=== PATIENT | female | born 1960 | race Caucasian/White ===

== ENCOUNTER 2018-11-07 16:58 | Outpatient (REF) | payer OTHER, SELFPAY ==
[2018-11-07 22:19] LABS: ALT 25 U/L (12-78); AST 17 U/L (15-37); Albumin 4.1 g/dL (3.4-5.0); Alkaline Phosphatase 74 U/L (46-116); Anion Gap 14.2 mmol/L (3-11); BUN 20 mg/dL (7-18); Bilirubin, Total 0.5 mg/dL (0.2-1.0); CO2 22.8 mmol/L (21.0-32.0); CREATININE 0.83 mg/dL (0.55-1.02); Calcium 9.2 mg/dL (8.5-10.1); Calculated LDL 151 mg/dL; Chloride 107 mmol/L (98-107); Cholesterol 237 mg/dL (50-200); Glucose 96 mg/dL (70-100); HDL Cholesterol 52 mg/dL (40-60); Sodium 144 mmol/L (136-145); Total Protein 7.3 g/dL (6.4-8.2); Triglyceride 171 mg/dL (30-150)
[2018-11-07 23:58] LABS: TSH (W/Ref FT4) 1.71 uIU/mL (0.36-3.74)
[2018-11-08 06:16] LABS: Vitamin D 25 Total 44.4 ng/ml (30-100)
== END 2018-11-07 17:18 ==
LOC: NCHCN 16:58
PROVIDERS: PCP Family Medicine; Visit Provider Family Medicine
DX: Z00.00 Encounter for general adult medical examination without abnormal findings (principal); E78.00 Pure hypercholesterolemia, unspecified; E55.9 Vitamin D deficiency, unspecified; R63.5 Abnormal weight gain
CPT/HCPCS: 80053; 80061; 82306; 83721; 84443

== ENCOUNTER 2020-05-15 20:52 | Outpatient (REF) | payer SELFPAY ==
[2020-05-15 21:48] LABS: ALT 22 U/L (14-59); AST 22 U/L (15-37); Albumin 4.3 g/dL (3.4-5.0); Alkaline Phosphatase 73 U/L (46-116); Anion Gap 9.7 mmol/L (3-11); BUN 20 mg/dL (7-18); Bilirubin, Total 0.8 mg/dL (0.2-1.0); CO2 24.3 mmol/L (21.0-32.0); Calcium 9.4 mg/dL (8.5-10.1); Chloride 104 mmol/L (98-107); Estimated GFR 56.75 (mL/min/1.73m2); Glucose 82 mg/dL (74-106); Potassium 3.6 mmol/L (3.5-5.1); Sodium 138 mmol/L (136-145); Total Protein 7.8 g/dL (6.4-8.2)
[2020-05-15 22:03] LABS: Calculated LDL 162 mg/dL (<100); Cholesterol 240 mg/dL (<200); HDL Cholesterol 62 mg/dL (40-60); Triglyceride 84 mg/dL (<150)
== END 2020-05-15 21:12 ==
LOC: NCHCN 20:52
PROVIDERS: PCP Family Medicine; Visit Provider Family Medicine
DX: Z00.00 Encounter for general adult medical examination without abnormal findings (principal); E78.00 Pure hypercholesterolemia, unspecified
CPT/HCPCS: 80053; 80061

== ENCOUNTER 2020-06-23 15:13 | Outpatient (REF) | payer SELFPAY ==
--- NOTE | 2020-06-23 13:30 | PAPFT_PTH ---
PATIENT: Palmira Membreno LOC: [facility] U#:[id number] AGE/SX: 59/F ROOM: RE06/23/[address]: Miko Best : 1960 BED: DIS: 06/23/2020 SPEC #: [id number] RECD: 06/24/20 12:51 STATUS: DONNIE REAstrid #: [id number] SURY: 06/23/20 13:[address]: Miko Best DEPT: [facility] Cytology RECD BY: Teresa Monroy Tissues: 1 - CX/ENDOCX FOR PAP SMEARS Procedures: PAP THIN PREP/[facility] Screening HPV DNA PROBE Comments: [id number]
== END 2020-06-23 15:14 | disposition home or self-care (01) ==
LOC: NCHCN 15:13
PROVIDERS: PCP Family Medicine; Visit Provider Family Medicine
DX: Z00.00 Encounter for general adult medical examination without abnormal findings (principal); Z12.4 Encounter for screening for malignant neoplasm of cervix; Z11.51 Encounter for screening for human papillomavirus (HPV)
CPT/HCPCS: 88142; 87624

== ENCOUNTER 2022-02-25 18:23 | Outpatient (REF) | payer OTHER, SELFPAY ==
[2022-02-25 22:03] LABS: ALT 23 U/L (14-59); AST 21 U/L (15-37); Albumin 4.1 g/dL (3.4-5.0); Alkaline Phosphatase 72 U/L (46-116); Anion Gap 7.8 mmol/L (3-11); BUN 18 mg/dL (7-18); Bilirubin, Total 0.4 mg/dL (0.2-1.0); CO2 26.2 mmol/L (21.0-32.0); CREATININE 0.9 mg/dL (0.55-1.02); Calcium 9.6 mg/dL (8.5-10.1); Calculated LDL 136 mg/dL (<100); Chloride 105 mmol/L (98-107); Cholesterol 220 mg/dL (<200); Estimated GFR 72.73 (mL/min/1.73m2); Glucose 88 mg/dL (74-106); HDL Cholesterol 58 mg/dL (40-60); Potassium 3.7 mmol/L (3.5-5.1); Sodium 139 mmol/L (136-145); Triglyceride 132 mg/dL (<150)
== END 2022-02-25 18:24 | disposition home or self-care (01) ==
LOC: NCHCN 18:23
PROVIDERS: PCP Family Medicine; Visit Provider Family Medicine
DX: Z00.00 Encounter for general adult medical examination without abnormal findings (principal); E78.00 Pure hypercholesterolemia, unspecified
CPT/HCPCS: 80053; 80061

== ENCOUNTER 2023-09-12 09:54 | Outpatient (REF) | payer MEDICAID, SELFPAY ==
[2023-09-12 14:25] LABS: ALT 28 U/L (14-59); AST 24 U/L (15-37); Alkaline Phosphatase 67 U/L (46-116); Anion Gap 6.3 mmol/L (3-11); BUN 22 mg/dL (7-18); Bilirubin, Total 0.9 mg/dL (0.2-1.0); CO2 23.7 mmol/L (21.0-32.0); CREATININE 1.1 mg/dL (0.55-1.02); Calcium 9.8 mg/dL (8.5-10.1); Calculated LDL 161 mg/dL (<100); Chloride 108 mmol/L (98-107); Cholesterol 247 mg/dL (<200); Estimated GFR 56.81 (mL/min/1.73m2); Glucose 100 mg/dL (74-106); HDL Cholesterol 65 mg/dL (40-60); Sodium 138 mmol/L (136-145); Triglyceride 106 mg/dL (<150)
[2023-09-12 14:48] LABS: Albumin 4.2 g/dL (3.4-5.0); Total Protein 7.9 g/dL (6.4-8.2)
== END 2023-09-12 09:55 | disposition home or self-care (01) ==
LOC: NCHCN 09:54
PROVIDERS: PCP Family Medicine; Visit Provider Family Medicine
DX: E78.00 Pure hypercholesterolemia, unspecified (principal)
CPT/HCPCS: 80053; 80061

== ENCOUNTER 2024-09-27 12:19 | Outpatient (REF) | payer BC, SELFPAY ==
[2024-09-27 15:34] LABS: ALT 28 U/L (14-59); AST 31 U/L (15-37); Albumin 3.8 g/dL (3.4-5.0); Alkaline Phosphatase 65 U/L (46-116); Anion Gap 8.7 mmol/L (3-11); BUN 20 mg/dL (7-18); Bilirubin, Total 0.8 mg/dL (0.2-1.0); CO2 27.3 mmol/L (21.0-32.0); Calcium 9.5 mg/dL (8.5-10.1); Calculated LDL 127 mg/dL (<100); Chloride 107 mmol/L (98-107); Cholesterol 207 mg/dL (<200); Glucose 87 mg/dL (74-106); HDL Cholesterol 62 mg/dL (>or=50); Potassium 3.9 mmol/L (3.5-5.1); Sodium 143 mmol/L (136-145); Total Protein 7.4 g/dL (6.4-8.2); Triglyceride 93 mg/dL (<150)
== END 2024-09-27 12:20 | disposition home or self-care (01) ==
LOC: NCHCN 12:19
PROVIDERS: PCP Family Medicine; Visit Provider Family Medicine
DX: E78.00 Pure hypercholesterolemia, unspecified (principal)
CPT/HCPCS: 80053; 80061